=== PATIENT | female | born 1940 | race Caucasian/White ===

== ENCOUNTER → 2017-01-13 | Outpatient (CLI) | payer MEDICARE | END | disposition home or self-care (01) | LOC: CFH 15:17 | PROVIDERS: ATTEND Internal Medicine Cardiovascular Disease | DX: I34.0 Nonrheumatic mitral (valve) insufficiency (principal); I07.1 Rheumatic tricuspid insufficiency; I37.1 Nonrheumatic pulmonary valve insufficiency | CPT/HCPCS: 93306 ==

== ENCOUNTER → 2017-06-23 | Outpatient (CLI) | payer MEDICARE ==
[~2017-06-23] MED LIST: ASPI-650 PO; NITROFURANTOIN; REGADENOSON 0.4 MG/5 ML SYRINGE ONE
== END | disposition home or self-care (01) ==
LOC: CFH 07:04
PROVIDERS: ATTEND Internal Medicine Cardiovascular Disease
DX: Z01.818 Encounter for other preprocedural examination (principal); I21.3 ST elevation (STEMI) myocardial infarction of unspecified site
CPT/HCPCS: 78452; 93017; A9502; J2785

== ENCOUNTER 2017-08-17 06:20 | Inpatient (IN) | payer MEDICARE ==
[~2017-08-17] VITALS: Ht 165.1 cm; Wt 83.1 kg
[~2017-08-17 06:20] MED LIST changes: +BACITRACIN 50,000 UNIT ONE; +BISA10EN PR; +BUPIVACAINE/PF 0.5% ONE; +DIPH25CA61 PO; +HYDR-3237 PO; +LABE5VIA13 IVPB; +NITR100C PO; +NONE PER PT; -REGADENOSON 0.4 MG/5 ML SYRINGE ONE; +SENN-1 PO; +THROMBIN 5,000 UNIT VIAL TP ONE; +[UNRECOGNIZED DRUG - CODE] PO
[2017-08-17] MEDS ORDERED: BUPIVACAINE/PF 0.5% ONE (06:55)
[2017-08-17] MEDS ORDERED: VANCOMYCIN 1,000 MG ONE (06:55)
[2017-08-17 07:31] VITALS: BP 148/77
[2017-08-17] MEDS ORDERED: LACTATED RINGERS 1,000 ML IV SCH (07:57)
[2017-08-17] MEDS ORDERED: LIDOCAINE 1%, 2ML SQ PRN (08:00)
[2017-08-17] MEDS ORDERED: TRAM50TA2 PO (08:07)
[2017-08-17] MEDS ORDERED: ASPI-650 PO (08:07)
[2017-08-17] MEDS ORDERED: METH750T87 PO (08:07)
[2017-08-17] MEDS ORDERED: AMOX500T PO (08:07)
[2017-08-17 08:13] LABS: HEMATOCRIT 41.5 % (34.6-47.8); HEMOGLOBIN 13.7 g/dL (11.7-16.4); WHITE BLOOD COUNT 8.7 x10^3/uL (3.4-10)
[2017-08-17] MEDS ORDERED: L.AC1CAP6 PO (08:19)
[2017-08-17 08:24] LABS: BLOOD UREA NITROGEN 10 mg/dL (7-18)
[2017-08-17] MEDS ORDERED: FENTANYL PF 100 MCG/2ML ONE (08:52)
[2017-08-17] MEDS ORDERED: MIDAZOLAM 1 MG/ML, 2ML ONE (08:52)
[2017-08-17] MEDS ORDERED: GLYCOPYRROLATE 0.2MG/1ML, 5ML ONE (10:54)
[2017-08-17] MEDS ORDERED: CEFAZOLIN 1,000 MG ONE (10:54)
[2017-08-17] MEDS ORDERED: PROPOFOL 10 MG/ML, 20ML ONE (10:54)
[2017-08-17] MEDS ORDERED: ROCURONIUM 10 MG/ML ONE (10:54)
[2017-08-17] MEDS ORDERED: SUCCINYLCHOLINE 20 MG/ML, 10ML ONE (10:54)
[2017-08-17] MEDS ORDERED: NEOSTIGMINE 1 MG/ML, 10ML ONE (10:54)
[2017-08-17] MEDS ORDERED: ONDANSETRON 2MG/ML, 2ML ONE (10:54)
[2017-08-17] MEDS ORDERED: HYDROmorphone 1 MG/ML, 1ML ONE (10:55)
[2017-08-17] MEDS ORDERED: DIAZEPAM 5 MG/ML, 2ML IVPush PRN (11:00)
[2017-08-17] MEDS ORDERED: FENTANYL PF 100 MCG/2ML IV PRN (11:00)
[2017-08-17] MEDS ORDERED: ONDANSETRON 2MG/ML, 2ML IVPush PRN ×2 (11:00→11:30)
[2017-08-17] MEDS ORDERED: MIDAZOLAM 1 MG/ML, 2ML IV PRN (11:00)
[2017-08-17] MEDS ORDERED: PROMETHAZINE 25 MG/ML, 1ML IV PRN (11:00)
[2017-08-17] MEDS ORDERED: EPHEDRINE 50 MG/ML, 1ML IVPush PRN (11:00)
[2017-08-17] MEDS ORDERED: LABETALOL 5MG/ML, 20ML IV PRN (11:00)
[2017-08-17] MEDS ORDERED: HYDROcodone/APAP 7.5-325MG/15ML UDC PO PRN (11:00)
[2017-08-17] MEDS ORDERED: hydrALAzine 20 MG/ML, 1ML IV PRN (11:00)
[2017-08-17] MEDS ORDERED: ALBUTEROL SULFATE 2.5 MG/3 ML NPPB PRN (11:00)
[2017-08-17] MEDS ORDERED: METOPROLOL 1 MG/ML, 5ML IV PRN (11:00)
[2017-08-17] MEDS ORDERED: ACETAMINOPHEN 325 MG TABLET PO PRN ×2 (11:00→11:30)
[2017-08-17] MEDS ORDERED: HYDROmorphone 1 MG/ML, 1ML IV PRN (11:00)
[2017-08-17] MEDS ORDERED: OXYcodone 5 MG/5 ML ORAL.SOL UDC PO PRN (11:00)
[2017-08-17] MEDS ORDERED: MEPERIDINE/PF 25MG/0.5ML IVPush PRN (11:00)
[2017-08-17] MEDS ORDERED: PROMETHAZINE 25 MG/ML, 1ML IM PRN (11:30)
[2017-08-17] MEDS ORDERED: BISACODYL 10 MG SUPP PR PRN (11:30)
[2017-08-17] MEDS ORDERED: SENNA/DOCUSATE TABLET PO PRN (11:30)
[2017-08-17] MEDS ORDERED: DIPHENHYDRAMINE 50 MG CAPSULE PO PRN (11:30)
[2017-08-17] MEDS ORDERED: HYDROcodone/APAP 10/325 MG TABLET PO PRN (11:30)
[2017-08-17] MEDS ORDERED: MAGNESIUM HYDROXIDE 8%, 30ML UDC PO PRN (11:30)
[2017-08-17] MEDS ORDERED: LABETALOL 5MG/ML, 20ML IVPush PRN (11:30)
[2017-08-17] MEDS ORDERED: morphine SULFATE 10 MG/ML, 1ML IVPush PRN (11:30)
[2017-08-17] MEDS ORDERED: PHARMACY MAY ADJ FOR RENAL FX MC PRN (11:30)
[2017-08-17] MEDS ORDERED: DIPHENHYDRAMINE 50 MG/ML, 1ML IVPush PRN (11:30)
[2017-08-17 12:35] VITALS: BP 131/69
[2017-08-17] MEDS: D5%-0.9% NACL+KCL 20MEQ 1,000 ML IV SCH (14:28)
[2017-08-17] MEDS: CEFAZOLIN PMX 1GM/50ML 50 ML IVPB SCH (18:06)
[2017-08-17 20:04] VITALS: BP 109/65
[2017-08-17] MEDS: SODIUM CHLORIDE FLUSH 10ML SYR IVF SCH (20:43)
[2017-08-17 23:57] VITALS: BP 96/69
[2017-08-18] MEDS: D5%-0.9% NACL+KCL 20MEQ 1,000 ML IV SCH ×2 (01:48→12:00)
[2017-08-18] MEDS: CEFAZOLIN PMX 1GM/50ML 50 ML IVPB SCH (01:50)
[2017-08-18 03:54] VITALS: BP 112/63
[2017-08-18 04:50] LABS: HEMATOCRIT 32.9 % (34.6-47.8); HEMOGLOBIN 10.9 g/dL (11.7-16.4); WHITE BLOOD COUNT 7.9 x10^3/uL (3.4-10)
[2017-08-18 04:54] LABS: BLOOD UREA NITROGEN 10 mg/dL (7-18)
[2017-08-18] MEDS ORDERED: ENOXAPARIN 30 MG/0.3 ML SQ SCH (06:00)
[2017-08-18 07:46] VITALS: BP 102/52
[2017-08-18] MEDS ORDERED: LACTOBACILLUS CHEW TABLET PO SCH (09:00)
[2017-08-18] MEDS: SODIUM CHLORIDE FLUSH 10ML SYR IVF SCH (09:00)
[2017-08-18] MEDS ORDERED: AMOXICILLIN PO SCH (09:00)
[2017-08-18 13:06] VITALS: BP 130/59
[2017-08-18 16:39] VITALS: BP 117/58
[2017-08-19] MEDS ORDERED: METHOCARBAMOL 750 MG TABLET PO SCH (19:30)
== END 2017-08-18 17:35 | DRG 517 ==
LOC: ORIP 06:20 → EDSTATUS 09:30 → 4NOR 12:36
PROVIDERS: ADMIT Neurological Surgery; ATTEND Neurological Surgery
PROC: 0SP004Z Removal of Internal Fixation Device from Lumbar Vertebral Joint, Open Approach (ICD-10-PCS; 2017-08-17)
PROC: 01NB0ZZ Release Lumbar Nerve, Open Approach (ICD-10-PCS; principal; 2017-08-17 09:30)
DX: T84.228A Displacement of internal fixation device of other bones, initial encounter (principal); I10 Essential (primary) hypertension; M48.061 Spinal stenosis, lumbar region without neurogenic claudication; M54.16 Radiculopathy, lumbar region; Z90.710 Acquired absence of both cervix and uterus; Z82.49 Family history of ischemic heart disease and other diseases of the circulatory system; Z82.0 Family history of epilepsy and other diseases of the nervous system; Z88.1 Allergy status to other antibiotic agents; Z88.8 Allergy status to other drugs, medicaments and biological substances
CPT/HCPCS: 36415; 80048; 85025; C1729; J0690; J1170; J1650; J2250; J2405; J2704; J2710; J3010; J3370; J3490; J0330; J3480; J7120

== ENCOUNTER 2017-10-28 15:08 | Emergency (ER) | payer MEDICARE ==
[~2017-10-28] VITALS: Ht 172.7 cm; Wt 75.0 kg
[~2017-10-28 15:08] MED LIST changes: +AMOX500T PO; +APIX5TAB PO; -BACITRACIN 50,000 UNIT ONE; -BUPIVACAINE/PF 0.5% ONE; +GABA600T2 PO; +L.AC1CAP6 PO; +METH750T87 PO; -THROMBIN 5,000 UNIT VIAL TP ONE; +TRAM50TA2 PO
[2017-10-28] MEDS ORDERED: RIVA10TA PO (16:01)
[2017-10-28 16:49] LABS: BASOPHILS # (AUTO) 0.03 x10^3/uL (0-0.1); BASOPHILS % (AUTO) 0 % (0-1); EOSINOPHILS # (AUTO) 0.07 x10^3/uL (0-0.4); EOSINOPHILS % (AUTO) 1 % (1-7); LYMPHOCYTES % (AUTO) 20 % (22-44); MD NO; MEAN CORPUSCULAR HEMOGLOBIN 26.3 pg (27.0-34.8); MEAN CORPUSCULAR HGB CONC 32.3 g/dL (32.4-35.8); MEAN CORPUSCULAR VOLUME 81.4 fL (80-100); MEAN PLATELET VOLUME 9.4 fL (7.4-10.4); MONOCYTES # (AUTO) 0.47 x10^3/uL (0.2-0.8); MONOCYTES % (AUTO) 5 % (2-9); NEUTROPHILS # (AUTO) 6.38 x10^3/uL (1.8-6.8); NEUTROPHILS % (AUTO) 74 % (42-75); PLATELET COUNT 207 x10^3/uL (130-400); RED BLOOD COUNT 4.64 x10^6/uL (3.82-5.3); RED CELL DISTRIBUTION WIDTH 16.5 % (9.6-15.2)
[2017-10-28 16:54] VITALS: BP 136/63
[2017-10-28 16:56] LABS: ALANINE AMINOTRANSFERASE 26 U/L (12-78); ALBUMIN 3.4 g/dL (3.4-5.0); ANION GAP 5 mmol/L (5-15); CALCIUM 8.7 mg/dL (8.5-10.1); CHLORIDE 110 mmol/L (98-107); CREATININE 0.72 mg/dL (0.55-1.02)
[2017-10-28 17:01] LABS: ALKALINE PHOSPHATASE 80 U/L (45-117); BILIRUBIN,TOTAL 0.4 mg/dL (0.2-1.0); TOTAL PROTEIN 7.6 g/dL (6.4-8.2); TROPONIN I < 0.015 ng/mL (0.000-0.045)
== END 2017-10-28 18:31 | disposition home or self-care (01) ==
LOC: ED 16:37
DX: K29.00 Acute gastritis without bleeding (principal); I10 Essential (primary) hypertension; Z90.49 Acquired absence of other specified parts of digestive tract
CPT/HCPCS: 36415; 71010; 80053; 83690; 84484; 85025; 93005; 99285

== ENCOUNTER → 2018-01-18 | Outpatient (CLI) | payer MEDICARE ==
[~2018-01-18] MED LIST changes: +OMNIPAQUE 350 MG/ML, 150 ML BOTTLE ONE; +RIVA10TA PO
== END ==
LOC: CFH 13:05
DX: N28.1 Cyst of kidney, acquired (principal); K57.30 Diverticulosis of large intestine without perforation or abscess without bleeding; R60.0 Localized edema
CPT/HCPCS: 74177; Q9967